=== PATIENT | female | born 1965 | race Caucasian/White ===

== ENCOUNTER 2017-02-03 23:39 | Emergency (ER) | payer SELFPAY ==
[~2017-02-03] VITALS: Ht 167.6 cm; Wt 113.4 kg
--- NOTE | 2017-02-03 23:39 | NUR ---
2334- PT [facility]IB[facility]. TAKEN TO BED 4. DR. MORALES AND RT AT BEDSIDE.
--- NOTE | 2017-02-03 23:39 | NUR ---
BIB [facility] FOUND LYING FACE DOWN ON THE STREET, SEMICONSCIOUS, POSSIBLE ASPIRATION. FOR AIRWAY INTERVENTION. CAME IN UNRESPONSIVE. INTUBATED AT 2354 BY GABRIEL TREJO, ASSISTED WITH DR. MORALES. SEE CODE SHEET FOR MEDS GIVEN. PERIPHERAL IV INSERTED G20 ON RIGHT HAND, G20 ON LEFT HAND. NGT F18 INSERTED. SUCTIONING OF SECRETIONS DONE. COLLAR NECK PLACED AT 2350. WITH HEAD LAC ON LEFT FOREHEAD. FOR TRANSFER TO [facility] FOR CONTINUITY OF CARE.
[2017-02-03 23:40] VITALS: BP 128/104
[2017-02-03] MEDS ORDERED: fentaNYL 0.05 MG/ML VIAL ONE (23:46)
--- NOTE | 2017-02-03 23:57 | NUR ---
X-Ray at bedside.
[2017-02-04] MEDS ORDERED: LORazepam 2 MG/ML VIAL IVP ONE
--- NOTE | 2017-02-04 00:04 | NUR ---
PT TAKEN BY [facility] TRANSPORT TO [facility] FOR TRAUMA CONTINUATION OF CARE
--- NOTE | 2017-02-04 00:04 | NUR ---
Patient to be transferred to [facility]. Is being transferred due to HIGHER LEVEL OF CARE. Receiving facility has accepting physician and available space. ER physician has signed transfer form. Patient or responsible republican has agreed to transfer and signed form. Patient belongings inventoried and will be sent with patient. Copy of nursing notes, lab reports, EKG, Physicians Orders and X-rays to be sent with patient. Report called to [facility] [place] BY LEI HODGES. ambulance service has been called for transfer.
[2017-02-04] MEDS ORDERED: LORazepam 2 MG/ML VIAL ONE (00:05)
[2017-02-04] MEDS ORDERED: fentaNYL 0.05 MG/ML VIAL IVP ONE (01:10)
[2017-02-04] MEDS ORDERED: SUCCINYLCHOLINE CHLORIDE 200 MG/10 ML VIAL IVP ONE (01:10)
[2017-02-04] MEDS ORDERED: ETOMIDATE 20 MG/10 ML VIAL IVP ONE (01:10)
== END 2017-02-04 00:04 | disposition short-term general hospital (02) ==
LOC: MED 23:39 → EDBD 23:39 → MED 02-04 00:04
DX: S01.81XA Laceration without foreign body of other part of head, initial encounter (principal); R41.82 Altered mental status, unspecified; X58.XXXA Exposure to other specified factors, initial encounter; Y93.89 Activity, other specified; Y92.89 Other specified places as the place of occurrence of the external cause; Y99.8 Other external cause status
CPT/HCPCS: 31500; 71010; 99285; J0330; J2060; J3010; J3490